=== PATIENT | male | born 1975 | race Caucasian/White ===

== ENCOUNTER → 2017-01-04 | Outpatient (CLI) | payer OTHER ==
--- NOTE | ~2017-01-04 | US6 ---
[facility] A Service of [facility] RADIOLOGY TEXT RESULTS PATIENT: MARYAM MUJICA LOCATION: [facility] : 71 UNIT #: [id number] AGE: [address]: Thuan Aviles MD SEX: M ORDER DR: [id number] [facility] [address] [place], [place] [address] [id number] O MR#: [id number] Acc #: [id number] NAME: MARYAM MUJICA : 1975 SEX: M STUDY DATE/TIME: 01/04/2017 8:42 UNIT: CGUS ROOM: STUDY DESCRIPTION: US Abdominal Limited Attending Physician: Thuan Aviles M.D. Referring Physician: Thuan Aviles M.D. Ordering Physician: Thuan Aviles M.D. Primary Care Physician: Thuan Aviles M.D. MEDICAL IMAGING REPORT This report is preliminary unless electronic signature is present EXAM Right upper quadrant abdominal ultrasound INDICATION Elevated liver enzyme levels PROCEDURE Adams-scale and Doppler imaging right upper quadrant of the abdomen. COMPARISON None FINDINGS Pancreas obscured by bowel gas. Liver measures 16.0 cm has increased echotexture. Unremarkable gallbladder. Right kidney obscured and not well seen. IMPRESSION 1. Increased liver echotexture in keeping with hepatic steatosis. 2. Right kidney is obscured and the pancreas is obscured and the structures are not well evaluated. Dictated by... Sundar Mullins M.D. THIS IS AN ELECTRONICALLY VERIFIED REPORT Sundar Mullins M.D. at 01/07/2017 8:22 AM DALLAS/delicia TD: 01/04/2017 10:15 JOB #: [id number] [facility] A Service [facility] RADIOLOGY TEXT RESULTS PATIENT: MARYAM MUJICA LOCATION: [facility] : 71 UNIT #: [id number] AGE: [address]: Thuan Aviles MD SEX: M ORDER DR: MEDICAL IMAGING REPORT Page 1 of 1 COPY
== END | disposition home or self-care (01) ==
LOC: CGUS 08:00
DX: R79.89 Other specified abnormal findings of blood chemistry (principal); K76.0 Fatty (change of) liver, not elsewhere classified
CPT/HCPCS: 76705

== ENCOUNTER → 2017-03-08 | Outpatient (CLI) | payer OTHER ==
--- NOTE | ~2017-03-08 | CR63 ---
[facility] A Service of [facility] RADIOLOGY TEXT RESULTS PATIENT: MARYAM MUJICA LOCATION: [facility] : 71 UNIT #: [id number] AGE: [address]: Jose David Madrigal MD SEX: M ORDER DR: [id number] [facility] [address] [place], [place] [address] [id number] O MR#: [id number] Acc #: [id number] NAME: MARYAM MUJICA : 1975 SEX: M STUDY DATE/TIME: 03/08/2017 13:53 UNIT: [facility] ROOM: STUDY DESCRIPTION: CR Chest 2 View Attending Physician: Jose David Madrigal M.D., Ph.D. Referring Physician: Jose David Madrigal M.D., Ph.D. Ordering Physician: Jose David Madrigal M.D., Ph.D. Primary Care Physician: Thuan Aviles M.D. MEDICAL IMAGING REPORT This report is preliminary unless electronic signature is present EXAM PA and lateral chest INDICATIONS Elevated white blood cell count today. COMPARISON No comparisons. FINDINGS Heart size upper normal. No definite acute infiltrate. Visualized osseous structures are unremarkable. IMPRESSION No active disease Dictated by... Ross Parikh M.D. THIS IS AN ELECTRONICALLY VERIFIED REPORT Ross Parikh M.D. at 03/13/2017 1:32 PM JAKI/nomi TD: 03/09/2017 11:34 JOB #: [id number] MEDICAL IMAGING REPORT Page 1 of 1 COPY
== END | disposition home or self-care (01) ==
LOC: CRAD 13:35
DX: D72.829 Elevated white blood cell count, unspecified (principal)
CPT/HCPCS: 71020